=== PATIENT | female | born 1960 | race African-American/Black ===

== ENCOUNTER 2025-08-12 11:40 | Emergency (ER) | payer MEDICARE, OTHER ==
[2025-08-12] MEDS ORDERED: Ketorolac Tromethamine 30 MG (1 mL) VIAL ONE (13:04)
== END 2025-08-12 15:45 | disposition home or self-care (01) ==
LOC: EDBD 11:40 → ERS 11:40
DX: M79.675 Pain in left toe(s) (principal); F17.210 Nicotine dependence, cigarettes, uncomplicated; Z86.73 Personal history of transient ischemic attack (TIA), and cerebral infarction without residual deficits; Z79.899 Other long term (current) drug therapy
CPT/HCPCS: 96372; 99283; J1885